=== PATIENT | female | born 1990 | race Caucasian/White ===

== ENCOUNTER 2017-08-13 13:00 | Observation (INO) | payer OTHER ==
[~2017-08-13] VITALS: Ht 160 cm; Wt 67.6 kg
[2017-08-13] MEDS ORDERED: PREN1TAB80 PO (13:52)
[2017-08-13 13:57] VITALS: BP 123/56
== END 2017-08-13 15:10 | disposition home or self-care (01) ==
LOC: 4S 13:00
PROVIDERS: ADMIT Specialist; ATTEND Specialist
DX: O42.92 Full-term premature rupture of membranes, unspecified as to length of time between rupture and onset of labor (principal); Z3A.38 38 weeks gestation of pregnancy
CPT/HCPCS: 59025; G0378

== ENCOUNTER 2017-08-14 11:05 | Observation (INO) | payer OTHER ==
[~2017-08-14] VITALS: Ht 160 cm; Wt 68.0 kg
[~2017-08-14 11:05] MED LIST: PREN1TAB80 PO
== END 2017-08-14 14:00 | disposition home or self-care (01) ==
LOC: 4S 11:08
PROVIDERS: ADMIT Specialist; ATTEND Specialist
DX: O42.92 Full-term premature rupture of membranes, unspecified as to length of time between rupture and onset of labor (principal); Z3A.38 38 weeks gestation of pregnancy
CPT/HCPCS: 36415; 59025; 89060; G0378

== ENCOUNTER 2017-08-14 14:31 | Inpatient (IN) | payer OTHER ==
[~2017-08-14] VITALS: Ht 157.5 cm; Wt 68.5 kg
[2017-08-19] MEDS ORDERED: CALC500T7 PO (03:01)
[2017-08-19] MEDS ORDERED: RINGERS SOLUTION,LACTATED 1,000 ML IV ONE (03:27)
[2017-08-19] MEDS ORDERED: OXYTOCIN 30 UNITS/LACT RINGERS 500 ML IV ONE (03:27)
[2017-08-19] MEDS ORDERED: LIDOCAINE HCL/PF 1% 30 ML VIAL INJ PRN (03:30)
[2017-08-19] MEDS ORDERED: METOCLOPRAMIDE HCL 5 MG/ML 2 ML VIAL IVP PRN (03:30)
[2017-08-19] MEDS ORDERED: AMPICILLIN SODIUM 2 GM/NS 100 ML IV ONE (03:30)
[2017-08-19] MEDS ORDERED: CITRIC ACID/SODIUM CITRATE 30 ML SOLUTION UDCUP PO PRN (03:30)
[2017-08-19 03:45] VITALS: BP 128/85
[2017-08-19] MEDS ORDERED: FentaNYL CITRATE-PF 100 MCG/2 ML VIAL IVP PRN (04:15)
[2017-08-19] MEDS: RINGERS SOLUTION,LACTATED 1,000 ML IV SCH ×4 (04:22→16:31)
[2017-08-19 04:38] LABS: BASOPHILS # (AUTO) 0.04 K/uL (0.00-0.20); BASOPHILS % (AUTO) 0.3 % (0.0-2.0); EOSINOPHILS # (AUTO) 0.06 K/uL (0.00-0.70); EOSINOPHILS % (AUTO) 0.43 % (1.0-6.0); HEMATOCRIT 34.5 % (36-46); HEMOGLOBIN 11.7 g/dL (12.0-16.0); LYMPHOCYTES # (AUTO) 1.7 K/uL (1.0-4.8); LYMPHOCYTES % (AUTO) 13.3 % (22.0-44.0); MEAN CORPUSCULAR HEMOGLOBIN 29.3 pg (26.0-34.0); MEAN CORPUSCULAR HGB CONC 33.9 G/dL (31.0-37.0); MEAN CORPUSCULAR VOLUME 86 fL (80-100); MONOCYTES # (AUTO) 0.8 K/uL (0.1-1.0); MONOCYTES % (AUTO) 6.3 % (2.0-9.0); NEUTROPHILS # (AUTO) 10.3 K/uL (1.8-7.7); NEUTROPHILS % (AUTO) 79.7 % (40.0-70.0); RED CELL DISTRIBUTION WIDTH 15.3 % (11.5-14.5)
[2017-08-19] MEDS ORDERED: FentaNYL/BUPIV 0.125%/NS/PF 200 ML ED ONE (04:51)
[2017-08-19] MEDS: AMPICILLIN SODIUM 1 GM/NS 50 ML IV SCH ×3 (08:22→16:34)
[2017-08-19] MEDS ORDERED: OXYTOCIN 30 UNITS/LACT RINGERS 500 ML IV PRN (08:32)
[2017-08-19] MEDS ORDERED: RINGERS SOLUTION,LACTATED 1,000 ML IV SCH (13:41)
[2017-08-19] MEDS ORDERED: OxyCODONE HCL/ACETAMINOPHEN 5-325 MG TABLET PO PRN ×4 (13:45→18:15)
[2017-08-19] MEDS ORDERED: LANOLIN 7 GM OINTMENT TP PRN ×2 (13:45→18:15)
[2017-08-19] MEDS ORDERED: IBUPROFEN 800 MG TABLET PO PRN (13:45)
[2017-08-19] MEDS ORDERED: AMPICILLIN SODIUM 1 GM/NS 50 ML IV SCH ×2 (18:15→22:30)
[2017-08-19] MEDS ORDERED: METHYLERGONOVINE MALEATE 0.2 MG TABLET PO PRN (18:15)
[2017-08-19] MEDS ORDERED: BENZOCAINE 20%/MENTHOL 56 GM SPRAY CANISTER TP PRN (18:15)
[2017-08-19] MEDS ORDERED: GLYCERIN/WITCH HAZEL LEAF 40 PADS JAR TP PRN (18:15)
[2017-08-19] MEDS: AMPICILLIN SODIUM 2 GM/NS 100 ML IV SCH (18:29)
[2017-08-19] MEDS: IBUPROFEN 800 MG TABLET PO PRN (18:35)
[2017-08-19] MEDS ORDERED: SENNA/DOCUSATE SODIUM 187-50 MG TABLET PO SCH (21:00)
[2017-08-19] MEDS: SENNA/DOCUSATE SODIUM 187-50 MG TABLET PO PRN (21:56)
[2017-08-19] MEDS: MAGNESIUM HYDROXIDE SUSPENSION 30 ML UDCUP PO PRN (21:56)
[2017-08-20] MEDS: AMPICILLIN SODIUM 2 GM/NS 100 ML IV SCH ×4 (00:35→18:05)
[2017-08-20 07:11] LABS: BASOPHILS % (AUTO) 0.3 % (0.0-2.0); EOSINOPHILS % (AUTO) 0.7 % (1.0-6.0); HEMATOCRIT 31.6 % (36-46); HEMOGLOBIN 10.6 g/dL (12.0-16.0); LYMPHOCYTES # (AUTO) 2.1 K/uL (1.0-4.8); LYMPHOCYTES % (AUTO) 14.1 % (22.0-44.0); MEAN CORPUSCULAR HEMOGLOBIN 29.4 pg (26.0-34.0); MEAN CORPUSCULAR HGB CONC 33.7 G/dL (31.0-37.0); MEAN CORPUSCULAR VOLUME 87 fL (80-100); MONOCYTES # (AUTO) 1.1 K/uL (0.1-1.0); MONOCYTES % (AUTO) 7.3 % (2.0-9.0); NEUTROPHILS # (AUTO) 11.5 K/uL (1.8-7.7); NEUTROPHILS % (AUTO) 77.6 % (40.0-70.0); RED BLOOD CELL COUNT(AUTO) 3.62 MIL/uL (4.00-5.20); RED CELL DISTRIBUTION WIDTH 15.5 % (11.5-14.5); WHITE BLOOD COUNT (AUTO) 14.9 K/uL (4.5-11.0)
[2017-08-20] MEDS: MAGNESIUM HYDROXIDE SUSPENSION 30 ML UDCUP PO PRN ×2 (08:56→20:43)
[2017-08-20] MEDS: SENNA/DOCUSATE SODIUM 187-50 MG TABLET PO PRN ×2 (08:56→20:43)
[2017-08-20] MEDS: IBUPROFEN 800 MG TABLET PO PRN (20:39)
[2017-08-21] MEDS: AMPICILLIN TRIHYDRATE 500 MG CAPSULE PO SCH ×3 (00:12→11:58)
[2017-08-21 07:03] LABS: BASOPHILS # (AUTO) 0.05 K/uL (0.00-0.20); BASOPHILS % (AUTO) 0.5 % (0.0-2.0); EOSINOPHILS # (AUTO) 0.25 K/uL (0.00-0.70); EOSINOPHILS % (AUTO) 2.23 % (1.0-6.0); HEMATOCRIT 29.5 % (36-46); HEMOGLOBIN 9.8 g/dL (12.0-16.0); LYMPHOCYTES # (AUTO) 2.5 K/uL (1.0-4.8); LYMPHOCYTES % (AUTO) 22.3 % (22.0-44.0); MEAN CORPUSCULAR HEMOGLOBIN 28.9 pg (26.0-34.0); MEAN CORPUSCULAR HGB CONC 33.1 G/dL (31.0-37.0); MEAN CORPUSCULAR VOLUME 87 fL (80-100); MONOCYTES # (AUTO) 0.7 K/uL (0.1-1.0); MONOCYTES % (AUTO) 5.9 % (2.0-9.0); NEUTROPHILS # (AUTO) 7.6 K/uL (1.8-7.7); RED BLOOD CELL COUNT(AUTO) 3.37 MIL/uL (4.00-5.20); RED CELL DISTRIBUTION WIDTH 15.6 % (11.5-14.5); WHITE BLOOD COUNT (AUTO) 11.1 K/uL (4.5-11.0)
[2017-08-21] MEDS ORDERED: IBUP-2070 PO (11:25)
[2017-08-21] MEDS ORDERED: DSS100 PO (11:27)
[2017-08-21] MEDS ORDERED: AMPI500C68 PO (11:36)
== END 2017-08-21 13:00 | disposition home or self-care (01) | DRG 774 ==
LOC: 4S 08-19 02:20 → OBSVTOIN 08-19 02:20
PROVIDERS: ADMIT Specialist; ATTEND Specialist
PROC: 10E0XZZ Delivery of Products of Conception, External Approach (ICD-10-PCS; principal; 2017-08-19)
PROC: 0KQM0ZZ Repair Perineum Muscle, Open Approach (ICD-10-PCS; 2017-08-19)
PROC: 0W8NXZZ Division of Female Perineum, External Approach (ICD-10-PCS; 2017-08-19)
PROC: 00HU33Z Insertion of Infusion Device into Spinal Canal, Percutaneous Approach (ICD-10-PCS; 2017-08-19)
DX: O63.0 Prolonged first stage (of labor) (principal); O98.32 Other infections with a predominantly sexual mode of transmission complicating childbirth; O77.0 Labor and delivery complicated by meconium in amniotic fluid; O99.824 Streptococcus B carrier state complicating childbirth; O69.81X0 Labor and delivery complicated by cord around neck, without compression, not applicable or unspecified; O70.0 First degree perineal laceration during delivery; A63.0 Anogenital (venereal) warts; Z3A.39 39 weeks gestation of pregnancy; Z37.0 Single live birth; Z79.899 Other long term (current) drug therapy
CPT/HCPCS: 86850; 86900; 86901; J0290; J2590; J3490; J7120